=== PATIENT | male | born 1930 | race Caucasian/White ===

== ENCOUNTER 2017-04-01 10:53 | Emergency (ER) | payer MEDICARE, BC ==
[2017-04-01 11:01] VITALS: BP 144/87
--- NOTE | 2017-04-01 11:45 | EDM.PDOC ---
ED HPI GENERAL MEDICAL PROBLEM - General Chief Complaint: Neuro Symptoms/Deficits Stated Complaint: STROKE? Time Seen by Provider: 04/01/17 11:21 Source of Information: Reports: Patient, Family, RN Notes Reviewed History Limitations: Reports: No Limitations - History of Present Illness INITIAL COMMENTS - FREE TEXT/NARRATIVE: 86-year-old gentleman presents emergency department today with concern of strokelike symptoms, he was feeling fine earlier today however of bouts one hour prior he had an event lasted 30 minutes of difficulty finding words and was mumbling in speech also felt dizzy difficulty ambulating and had right arm tingling. By the time you arrives to the emergency department all the symptoms have resolved. He did admit to an event similar to this about 3 or 4 years ago lasted 30 minutes all symptoms resolved. He does take a daily aspirin and does have a history of dyslipidemia - Related Data Allergies Allergy/AdvReac Type Severity Reaction Status Date / Time No Known Allergies Allergy Verified 04/01/17 11:03 Home Meds: Home Meds Aspirin [Ecotrin] 81 mg PO DAILY 04/01/17 [History] Hydrochlorothiazide 25 mg PO BEDTIME 04/01/17 [History] Levothyroxine 25 mcg PO ACBREAKFAST 04/01/17 [History] Simvastatin [Zocor] 20 mg PO BEDTIME 04/01/17 [History] Past Medical History HEENT History: Reports: Cataract, Retinal Detachment Cardiovascular History: Reports: High Cholesterol Gastrointestinal History: Reports: Cholelithiasis Genitourinary History: Reports: BPH, Other (See Below) Other Genitourinary History: Prosrtate cancer - seeds and radiation 2001 Endocrine/Metabolic History: Reports: Hypothyroidism Oncologic (Cancer) History: Reports: Prostate - Infectious Disease History Infectious Disease History: Reports: Chicken Pox, Measles, Shingles - Past Surgical History HEENT Surgical History: Reports: Cataract Surgery, Detached Retina, Eye Surgery , Tonsillectomy GI Surgical History: Reports: Cholecystectomy, Hernia Repair/Other Social & Family History - Tobacco Use Smoking Status *Q: Never Smoker - Caffeine Use Caffeine Use: Reports: Soda Caffeine Use Comment: rare - Recreational Drug Use Recreational Drug Use: No ED ROS GENERAL - Review of Systems Review Of Systems: See Below Constitutional: Reports: No Symptoms HEENT: Reports: No Symptoms Respiratory: Reports: No Symptoms Cardiovascular: Reports: No Symptoms GI/Abdominal: Reports: No Symptoms : Reports: No Symptoms Musculoskeletal: Reports: No Symptoms Skin: Reports: No Symptoms Neurological: Reports: Dizziness, Trouble Speaking, Difficulty Walking, Change in Speech ED EXAM, NEURO - Physical Exam Exam: See Below Text/Narrative:: General: Elderly male, not in any distress, alert and oriented x3 HEENT: head is atraumatic normocephalic, eyes pupils equal round reactive to light, sclera clear no conjunctivitis appreciated. Ears tympanic membranes clear and figueredo landmarks and light reflex are present bilaterally canals are clear. Nose no septal deviation, nares are clear, no blood present. Mouth mucosa is moist and pink no erythema or exudate noted in soft palate, tongue is midline uvula is midline, dentition is intact. Neck: Supple no thyromegaly no tracheal deviation. Nodes: Cervical nodes subclavicular nodes nontender no palpable lymphadenopathy noted. Lungs: clear to auscultation bilaterally with symmetrical respirations, no adventitious noise appreciated. CV: Regular rate and rhythm S1 and S2 appreciated no murmurs rubs or gallops noted. Abdomen: Soft, nontender, no palpable masses or organomegaly appreciated, no distention no guarding bowel sounds are present, [scars ]. Neuro: Cranial nerves II through XII grossly intact, power is 5 out 5 in upper and lower extremities, patellar reflex, biceps reflex +2 can do finger to nose without difficulty no dysdiadochokinesis no difficulty with rapid alternating movements can do [id number] without difficulty Romberg is negative, has adequate gait can do heel to toe, can toe walk and heel walk no cerebellar dysfunction no focal neurologic deficit Skin: Warm and dry, intact Extremities: No lower extremity edema appreciated, Course - Vital Signs Last Recorded V/S: Last Vital Signs Temp 96.6 F 04/01/17 11:02 Pulse 65 04/01/17 11:02 Resp 15 04/01/17 11:02 BP 144/87 H 04/01/17 11:02 Pulse Ox 97 04/01/17 11:02 - Orders/Labs/Meds Orders: Active Orders 24 hr Category Date Time Status EKG Documentation Completion [RC] ASDIRECTED Care 04/01/17 11:37 Active Brain wo Cont [MR] Stat Exams 04/01/17 13:45 Taken EKG 12 Lead [EK] Urgent Ther 04/01/17 11:36 Ordered Labs: Laboratory Tests 04/01/17 04/01/17 04/01/17 Range/Units 11:43 11:43 11:43 WBC 7.5 (4.5-11.0) K/uL RBC 4.73 (4.30-5.90) M/uL Hgb 14.8 (12.0-15.0) g/dL Hct 43.2 (40.0-54.0) % MCV 91 (80-98) fL MCH 31 (27-31) pg MCHC 34 (32-36) % Plt Count 209 (150-400) K/uL Neut % (Auto) 64 (36-66) % Lymph % (Auto) 24 (24-44) % [place] % (Auto) 11 H (2-6) % Eos % (Auto) 1 L (2-4) % Baso % (Auto) 0 (0-1) % ESR (0-20) mm/hr PT 10.5 (9.5-12.0) sec INR 0.98 (0.80-1.20) APTT 28.5 (27.0-36.0) sec Sodium 141 (140-148) mmol/L Potassium 3.8 (3.6-5.2) mmol/L Chloride 101 (100-108) mmol/L Carbon Dioxide 30 (21-32) mmol/L Anion Gap 10.0 (5.0-14.0) mmol/L BUN 18 (7-18) mg/dL Creatinine 1.2 (0.8-1.3) mg/dL Est Cr Clr Drug Dosing 50.86 mL/min Estimated GFR (MDRD) 58 L (>60) Glucose 90 (74-106) mg/dL Calcium 9.5 (8.5-10.1) mg/dL Total Bilirubin 0.5 (0.2-1.0) mg/dL AST 20 (15-37) U/L ALT 25 (12-78) U/L Alkaline Phosphatase 76 (46-116) U/L Total Protein 7.1 (6.4-8.2) g/dL Albumin 3.4 (3.4-5.0) g/dL Globulin 3.7 H (2.3-3.5) g/dL Albumin/Globulin Ratio 0.9 L (1.2-2.2) 04/01/17 Range/Units 11:43 WBC (4.5-11.0) K/uL RBC (4.30-5.90) M/uL Hgb (12.0-15.0) g/dL Hct (40.0-54.0) % MCV (80-98) fL MCH (27-31) pg MCHC (32-36) % Plt Count (150-400) K/uL Neut % (Auto) (36-66) % Lymph % (Auto) (24-44) % [place] % (Auto) (2-6) % Eos % (Auto) (2-4) % Baso % (Auto) (0-1) % ESR 27 H (0-20) mm/hr PT (9.5-12.0) sec INR (0.80-1.20) APTT (27.0-36.0) sec Sodium (140-148) mmol/L Potassium (3.6-5.2) mmol/L Chloride (100-108) mmol/L Carbon Dioxide (21-32) mmol/L Anion Gap (5.0-14.0) mmol/L BUN (7-18) mg/dL Creatinine (0.8-1.3) mg/dL Est Cr Clr Drug Dosing mL/min Estimated GFR (MDRD) (>60) Glucose (74-106) mg/dL Calcium (8.5-10.1) mg/dL Total Bilirubin (0.2-1.0) mg/dL AST (15-37) U/L ALT (12-78) U/L Alkaline Phosphatase (46-116) U/L Total Protein (6.4-8.2) g/dL Albumin (3.4-5.0) g/dL Globulin (2.3-3.5) g/dL Albumin/Globulin Ratio (1.2-2.2) Departure - Departure Time of Disposition: 13:40 Disposition: Home, Self-Care 01 Condition: Good Clinical Impression: Difficulty with speech - Discharge Information Referrals: PCP,None [Primary Care Provider] - Forms: ED Department Discharge Additional Instructions: Please followup with your primary care provider in upon return home if not better, please call return to the emergency department with worsening of symptoms. - My Orders Last 24 Hours: My Active Orders 04/01/17 11:36 EKG 12 Lead [EK] Urgent 04/01/17 11:37 EKG Documentation Completion [RC] ASDIRECTED 04/01/17 13:45 Brain wo Cont [MR] Stat - Assessment/Plan Last 24 Hours: My Active Orders 04/01/17 11:36 EKG 12 Lead [EK] Urgent 04/01/17 11:37 EKG Documentation Completion [RC] ASDIRECTED 04/01/17 13:45 Brain wo Cont [MR] Stat Plan: Assessment Acuity = acute Site and laterality = expressive aphasia palpated patient with known history of dyslipidemia and hypertension as well as hypothyroidism Etiology = unknown etiology Manifestations = none Location of injury = home Lab values = CBC, INR, sedimentation rate, CMP, initial head CT all negative, MRI negative Plan I did give him options including transfer to [place] for further evaluation as well as hospital admission here he declined since his ABCD squared score is 4 puts him at moderate risk I was able to order an MRI MRA for tomorrow will set up an echocardiogram for he recently had carotid ultrasound studies done 2 years ago will obtain those records Patient was in agreement with the plan all questions were answered, they were instructed to return to the emergency department or call for worsening symptoms. This note was dictated using luma-id voice recognition software please call with any questions.
--- NOTE | 2017-04-01 12:36 | CT ---
Head wo Cont HISTORY: Dysarthria TECHNIQUE: Spiral noncontrast CT scan of the brain was obtained along with high-resolution bone wind ow reconstructions. FINDINGS: No acute intracranial hemorrhage or infarct is identified. There is no mass lesion, mass effect, mid line shift, or ventricular abnormality. No abnormal extra-axial fluid collections are seen. Visualiz ed paranasal sinuses and mastoid air cells are clear. Bone windows show no evidence for skull fractu re. IMPRESSION: No hemorrhage, infarct, or other acute intracranial abnormality identified. Report was called to the Emergency Department at 1230 hours. Total DLP 755 mGycm
--- NOTE | 2017-04-01 14:37 | MR ---
Ang Head wo Cont HISTORY: Expressive aphasia TECHNIQUE: 3D [id number] MR angiography noncontrasted sequences of the intracranial arteries wer e obtained centered about the [place]. Source and 3-D multiplanar reconstructions were revi ewed. FINDINGS: Distal internal carotid arteries are widely patent through the carotid siphon. No abnormality of the distal vertebral arteries or basilar artery can be seen. Visualized arteries about [place] and the proximal branches of the anterior, middle, and posterior cerebral artery circulations s how no evidence for aneurysm, vascular malformation, vascular cutoff, or extrinsic mass effect. IMPRESSION: MR angiography of the brain within normal limits. No signs of intracranial aneurysm or vascular malf ormation or vascular cut off.
--- NOTE | 2017-04-01 14:52 | MR ---
Brain wo Cont HISTORY: expressive aphagia TECHNIQUE: Multiplanar noncontrasted sequences of the brain were obtained. Comparison is made with evette arriaga noncontrasted CT head exam. FINDINGS: Midline structures appear intact. There is no restricted diffusion or hemosiderin deposition. No acu te hemorrhage or infarct is identified. No mass lesion, mass effect, midline shift, or ventricular a bnormality is identified. Scattered tiny foci of increased T2 signal are seen in the deep white matter cerebral hemispheres bi laterally probably consistent with chronic microvascular ischemic disease considering the patient's age. There are no abnormal extra-axial fluid collections. Visualized paranasal sinuses and mastoid a ir cells are clear. IMPRESSION: 1. No acute hemorrhage, infarct, or other acute intracranial abnormality is identified. No mass lesi on or mass effect is identified. 2. Mild scattered chronic deep white matter microvascular ischemic changes cerebral hemispheres bila terally. Report of the MRI and MRA brain exams were called to Officer in the Emergency Department at 1441 hours.
== END 2017-04-01 15:20 | disposition home or self-care (01) ==
LOC: JP.ED 10:53
DX: R47.9 Unspecified speech disturbances (principal); E78.00 Pure hypercholesterolemia, unspecified; E03.9 Hypothyroidism, unspecified; Z98.49 Cataract extraction status, unspecified eye; Z90.49 Acquired absence of other specified parts of digestive tract; Z98.890 Other specified postprocedural states; Z85.46 Personal history of malignant neoplasm of prostate; Z79.82 Long term (current) use of aspirin; Z79.899 Other long term (current) drug therapy
CPT/HCPCS: 36415; 70450; 70450-26; 70544; 70544-26; 70551; 70551-26; 80053; 85025; 85610; 85651; 85730; 93005; 93010; 99283; 99284-25